=== PATIENT | male | born 1990 | race Caucasian/White ===

== ENCOUNTER 2017-08-21 13:30 | Emergency (ER) | payer SELFPAY, OTHER, MEDICAID | END 2017-08-21 15:21 | disposition home or self-care (01) | LOC: FTE 15:21 | DX: J20.9 Acute bronchitis, unspecified (principal); J45.909 Unspecified asthma, uncomplicated | CPT/HCPCS: 71045; 99284-25 ==

== ENCOUNTER 2017-12-21 15:03 | Emergency (ER) | payer OTHER, MEDICAID | END 2017-12-21 16:25 | disposition home or self-care (01) | LOC: FTE 15:03 | DX: S80.861A Insect bite (nonvenomous), right lower leg, initial encounter (principal); J45.909 Unspecified asthma, uncomplicated; W57.XXXA Bitten or stung by nonvenomous insect and other nonvenomous arthropods, initial encounter; Y92.9 Unspecified place or not applicable | CPT/HCPCS: 99283; Z7502 ==

== ENCOUNTER 2018-02-09 08:22 | Emergency (ER) | payer OTHER | END 2018-02-09 08:57 | disposition home or self-care (01) | LOC: FTE 08:22 | DX: R05 Cough (principal); J45.909 Unspecified asthma, uncomplicated; R40.2412 Glasgow coma scale score 13-15, at arrival to emergency department | CPT/HCPCS: 99283; Z7502 ==